=== PATIENT | female | born 1970 | race Caucasian/White ===

== ENCOUNTER → 2017-04-01 | Outpatient (CLI) | payer SELFPAY ==
--- NOTE | 2017-04-01 14:24 | MM ---
Reason for exam: clinical finding. Last mammogram was performed 5 years and 7 months ago. History: Family history of breast cancer in maternal grandmother at age 50. Benign US LT VAD breast biopsy of the left breast, September 23, 2011. U/S LT Cancelled Core of the left breast, September 23, 2011. Physical Findings: Nurse Summary: 1 x 1.5cm nodule in the left breast at 12 o'clock (nurse ts). MG Diagnostic Mammo w CAD ADALI Bilateral CC and MLO view(s) were taken. Prior study comparison: August 26, 2011, CAD bilateral diagnostic mammogram. May 22, 2011, bilateral digital screening mammo w/CAD. The breast tissue is extremely dense which could obscure a lesion on mammography. Previous mammotome biopsy in the left breast. Palpable marker left upper outer quadrant near the nipple. No discrete abnormality identified. Ultrasound is recommended given the degree of dense breast tissue. These results were verbally communicated with the patient and result sheet given to the patient on 04/01/17. ASSESSMENT: Incomplete: need additional imaging evaluation, BI-RAD 0 RECOMMENDATION: Ultrasound of the left breast.
--- NOTE | 2017-04-01 14:35 | USB ---
Reason for exam: additional evaluation requested from abnormal screening. History: Family history of breast cancer in maternal grandmother at age 50. Benign US LT VAD breast biopsy of the left breast, September 23, 2011. U/S LT Cancelled Core of the left breast, September 23, 2011. US Breast LT Left breast ultrasound includes all four quadrants, the retroareolar region and axilla. Finding demonstrates a 1.1 x 1.0 x 1.6cm solid lesion at 12 o'clock already biopsied in 2011 with results showing fibroadenoma, a clip is seen within and this corresponds to the palpable site, a 0.5 x 0.3 x 0.4cm hypoechoic, probably cystic lesion at 2 o'clock, a 0.4 x 0.2 x 0.4cm probably cystic lesion too small to characterize at 7 o'clock, a 0.9 x 0.4 x 0.7cm solid lesion, now smaller, benign at 9 o'clock and a 1.0 x 0.4 x 1.3cm solid lesion at 9 o'clock versus 1.2 x 0.4 x 1.2cm, stable and benign. These results were verbally communicated with the patient and result sheet given to the patient on 04/01/17. ASSESSMENT: Benign, BI-RAD 2 RECOMMENDATION: Routine screening mammogram of both breasts in 1 year. Manage patient on a clinical basis. (Surgical excision can be considered if symptomatic).
== END | disposition home or self-care (01) ==
LOC: RADMAMWWP 12:49
PROVIDERS: ATTEND Family Medicine Adolescent Medicine
DX: R92.8 Other abnormal and inconclusive findings on diagnostic imaging of breast (principal); N63.0 Unspecified lump in unspecified breast
CPT/HCPCS: 76641; G0204

== ENCOUNTER 2021-08-23 10:01 | Emergency (ER) | payer OTHER ==
[2021-08-23 10:08] VITALS: RESP 16; TEMP 97.7
[2021-08-23] MEDS ORDERED: ALBUTEROL HFA INHALER INHALATION STA (11:02)
--- NOTE | 2021-08-23 11:04 | ED ---
SOB HPI - General Chief Complaint: Shortness of Breath Stated Complaint: covid+/wants antibodies Time Seen by Provider: 08/23/21 10:36 Source: patient, RN notes reviewed Mode of arrival: ambulatory Limitations: no limitations - History of Present Illness Initial Comments: 50-year-old female with a history of smoking who does have an inhaler at home who also has a history of ankylosing spondylitis and chronic body pain states she had the onset yesterday feeling tired and this morning felt tired and had diarrhea loss of taste and smell worsening bodyaches and her usual difficulty breathing a cough with minimal phlegm production. She denies any overt fevers chills or sweats however. She did test her self at home this morning she does have: Positive testing at home. She was exposed to her and in-laws. No chest pain or palpitations or other complaints at this time no sore throat rhinorrhea earaches. MD Complaint: shortness of breath, cough - Related Data Allergies Allergy/AdvReac Type Severity Reaction Status Date / Time Sulfa (Sulfonamide AdvReac Vomiting Verified 08/23/21 10:04 Antibiotics) Review of Systems ROS Statement: Those systems with pertinent positive or pertinent negative responses have been documented in the HPI. ROS Other: All systems not noted in ROS Statement are negative. Past Medical History Past Medical History: No Reported History History of Any Multi-Drug Resistant Organisms: None Reported Past Surgical History: No Surgical Hx Reported Past Psychological History: No Psychological Hx Reported Smoking Status: Current every day smoker Past Alcohol Use History: None Reported Past Drug Use History: None Reported General Exam - General Exam Comments Initial Comments: This is a well-developed well-nourished awake alert oriented 3 female Limitations: no limitations General appearance: alert, anxious Head exam: Present: atraumatic, normocephalic, normal inspection Eye exam: Present: normal appearance, PERRL, EOMI. Absent: scleral icterus, conjunctival injection, periorbital swelling ENT exam: Present: normal exam, mucous membranes moist Neck exam: Present: normal inspection, full ROM, other. Absent: tenderness, meningismus, lymphadenopathy Respiratory exam: Present: wheezes, decreased breath sounds (No stridor JVD or bruits). Absent: respiratory distress, rales, rhonchi, stridor Cardiovascular Exam: Present: regular rate, normal rhythm, normal heart sounds. Absent: systolic murmur, diastolic murmur, rubs, gallop, clicks GI/Abdominal exam: Present: soft, normal bowel sounds. Absent: distended, tenderness, guarding, rebound, rigid Extremities exam: Present: normal inspection, full ROM, normal capillary refill. Absent: tenderness, pedal edema, joint swelling, calf tenderness Back exam: Present: normal inspection Neurological exam: Present: alert, oriented X3, CN II-XII intact Psychiatric exam: Present: normal affect, normal mood Skin exam: Present: warm, dry, intact, normal color. Absent: rash Course Vital Signs 08/23/21 10:04 Temperature 97.7 F Pulse Rate 75 Respiratory 16 Rate Blood Pressure 153/88 O2 Sat by Pulse 95 Oximetry Medical Decision Making - Medical Decision Making The patient is feeling much improved at this time we did a long discussion regarding the findings and treatment of cold with she will be discharged with instructions for increasing vitamin C D3 and zinc consumption - Lab Data Lab Results 08/23/21 Range/Units 11:07 Coronavirus (PCR) Detected A (Not Detectd) Disposition Clinical Impression: COVID-19 Disposition: HOME SELF-CARE Condition: Good Instructions (If sedation given, give patient instructions): Coronavirus Disease 2019 (COVID-19), How to Recover from COVID-19 at Home (ED) Is patient prescribed a controlled substance at d/c from ED?: No Referrals: Alfa Pleitez Jr, DO [Primary Care Provider] - 1-2 days Decision Date: 08/23/21 Decision Time: 13:36
[2021-08-23] MEDS ORDERED: BEBTELOVIMAB (EUA) 175 MG/2 ML VIAL IV ONE (11:45)
--- NOTE | 2021-08-23 11:55 | XR ---
EXAMINATION TYPE: XR chest 2V DATE OF EXAM: 08/23/2021 COMPARISON: NONE HISTORY: Dyspnea and Covid positive TECHNIQUE: Frontal and lateral views of the chest are obtained. FINDINGS: There is no focal air space opacity, pleural effusion, or pneumothorax seen. The cardiac silhouette size is within normal limits. Prominent lung volume may be indicative of underlying COPD, there is eventration of right hemidiaphragm The osseous structures are intact. IMPRESSION: No acute cardiopulmonary process.
[2021-08-23 13:52] VITALS: BP 159/99; PULSE 77
== END 2021-08-23 13:52 | disposition home or self-care (01) ==
LOC: EC 10:01
DX: U07.1 COVID-19 (principal); F17.200 Nicotine dependence, unspecified, uncomplicated; Z88.2 Allergy status to sulfonamides
CPT/HCPCS: 94640; 87635; 71046; 99285; Q0222